=== PATIENT | female | born 1980 | race Two or more races ===

== ENCOUNTER 2021-01-16 18:34 | Emergency (ER) | payer SELFPAY ==
[~2021-01-16] VITALS: Ht 165.1 cm; Wt 104.5 kg
[2021-01-16] MEDS ORDERED: KETOROLAC TROMETHAMINE 60 MG/2 ML VIAL IM ONE (20:30)
[2021-01-16] MEDS ORDERED: ACETAMINOPHEN/CODEINE 300-30 MG TABLET PO ONE (20:30)
[2021-01-16] MEDS ORDERED: BACITRACIN 0.9 GM PACKET OINTMENT TP ONE (20:30)
[2021-01-17 01:02] VITALS: BP 119/68
== END 2021-01-17 02:00 | disposition home or self-care (01) ==
LOC: EMS 18:34
DX: S16.1XXA Strain of muscle, fascia and tendon at neck level, initial encounter (principal); S39.012A Strain of muscle, fascia and tendon of lower back, initial encounter; S80.02XA Contusion of left knee, initial encounter; V48.6XXA Car passenger injured in noncollision transport accident in traffic accident, initial encounter; Y93.89 Activity, other specified; Y92.89 Other specified places as the place of occurrence of the external cause; Y99.8 Other external cause status
CPT/HCPCS: 72050; 72100; 73562; 81025; 96372; 99285; J1885